=== PATIENT | male | born 1980 | race Caucasian/White ===

== ENCOUNTER 2016-09-28 12:00 | Emergency (ER) | payer OTHER, SELFPAY ==
--- NOTE | 2016-09-28 12:34 | ED.PDOC ---
History of Present Illness - General Chief Complaint: Respiratory Problem Stated Complaint: shortness of breath, nausea, dizzy Time Seen by Provider: 09/28/16 12:16 Source: patient, RN notes reviewed, Vital Signs reviewed Exam Limitations: no limitations - History of Present Illness Initial Comments: Marcia 36 y/o male with no chronic medical problem stated that at about 0730 h this morning he started having chest pressure while at work non radiating no diaphoresis also felt dizzy on bending over symptoms persisted he decided to come to er.Had same symptoms in the past stating whenever he goes to sleep lasting for about 30 minutes and goes away on its own.But he stated never happened on standing up. Denies exertional chest pain or dyspnea. Allergies/Adverse Reactions: Allergies NO KNOWN ALLERGY Allergy (Verified 09/28/16 12:21) Home Medications: Ambulatory Orders Oseltamivir Phosphate [Tamiflu] 75 mg PO BID #10 cap 09/28/16 Review of Systems - Review of Systems Constitutional: States: no symptoms reported EENTM: States: no symptoms reported Respiratory: States: see HPI Cardiology: States: see HPI Gastrointestinal/Abdominal: States: no symptoms reported Genitourinary: States: no symptoms reported Musculoskeletal: States: no symptoms reported Skin: States: no symptoms reported Neurological: States: no symptoms reported Endocrine: States: no symptoms reported Hematologic/Lymphatic: States: no symptoms reported Past Medical History (General) - Patient Medical History Hx Seizures: No Hx Stroke: No Hx Asthma: No Hx of COPD: No Hx Cardiac Disorders: No Hx Congestive Heart Failure: No Hx Pacemaker: No Hx Hypertension: No Hx Diabetes: No Hx MRSA: No Surgical History: other - knee(r),ORIF LEFT LEG - Vaccination History Hx Tetanus, Diphtheria Vaccination: Yes Hx Influenza Vaccination: No Hx Pneumococcal Vaccination: No - Social History Hx Tobacco Use: No Hx Chewing Tobacco Use: No Hx Alcohol Use: No Hx Substance Use: No Hx Substance Use Treatment: No Hx Depression: No Hx Physical Abuse: No Hx Emotional Abuse: No - Activities of Daily Living Patient Lives Alone: No - family Hospice Agency (if applicable):: None - Female History Patient is a Female of Child Bearing Age (10 -59 yrs old): No Patient : No Family Medical History - Family History Mother Family History: Unknown Living Status: Unknown Physical Exam - Physical Exam General Appearance: Alert, No apparent distress Ears, Nose, Throat: hearing grossly normal, normal ENT inspection, normal pharynx Neck: non-tender, full range of motion, supple Respiratory: chest non-tender, lungs clear, normal breath sounds, no respiratory distress Cardiovascular/Chest: normal peripheral pulses, regular rate, rhythm, no edema, no gallop, no JVD, no murmur Peripheral Pulses: radial,right: 2+, radial,left: 2+ Gastrointestinal/Abdominal: normal bowel sounds, non tender, soft, no organomegaly Back Exam: normal inspection, no CVA tenderness, no vertebral tenderness Extremity: normal range of motion, non-tender, normal inspection, no pedal edema Neurologic: no motor/sensory deficits, alert, normal mood/affect, oriented x 3 Skin Exam: normal color, warm/dry Progress - Progress Progress: 09/28/16 16:15 Repeat troponin-negative - Results/Orders Results/Orders: 09/28/16 12:45 EKG STAT Laboratory Results WBC 4.7 K/mm3 (4.8-10.8) L 09/28/16 12:50 RBC 5.02 M/mm3 (4.70-6.10) 09/28/16 12:50 Hgb 14.4 gm/dL (14.0-18.0) 09/28/16 12:50 Hct 42.2 % (42.0-52.0) 09/28/16 12:50 MCV 84.2 fl (80.0-94.0) 09/28/16 12:50 MCH 28.8 pg (27.0-31.0) 09/28/16 12:50 MCHC 34.2 g/dL (33.0-37.0) 09/28/16 12:50 RDW 12.8 % (11.5-14.5) 09/28/16 12:50 Plt Count 171 K/mm3 (130-400) 09/28/16 12:50 MPV 7.2 fl (7.40-10.4) L 09/28/16 12:50 Absolute Neuts (auto) 3.20 K/uL (1.8-6.8) 09/28/16 12:50 Absolute Lymphs (auto) 0.70 K/uL (1.0-3.4) L 09/28/16 12:50 Absolute Monos (auto) 0.70 K/uL (0.2-0.8) 09/28/16 12:50 Absolute Eos (auto) 0.10 K/uL (0.0-0.4) 09/28/16 12:50 Absolute Basos (auto) 0.00 K/uL (0.0-0.1) 09/28/16 12:50 Neutrophils % 67.8 % (42.0-78.0) 09/28/16 12:50 Lymphocytes % 14.7 % (20.0-50.0) L 09/28/16 12:50 Monocytes % 14.9 % (2.0-9.0) H 09/28/16 12:50 Eosinophils % 2.1 % (1.0-5.0) 09/28/16 12:50 Basophils % 0.5 % (0.0-2.0) 09/28/16 12:50 D-Dimer, Quantitative < 200 ng/mL (0-230) 09/28/16 12:50 Sodium 136 mmol/L (135-145) 09/28/16 12:50 Potassium 3.7 mmol/L (3.6-5.0) 09/28/16 12:50 Chloride 101 mmol/L (101-111) 09/28/16 12:50 Carbon Dioxide 27 mmol/L (21-31) 09/28/16 12:50 Anion Gap 11.7 (12-18) L 09/28/16 12:50 BUN 13 mg/dL (7-18) 09/28/16 12:50 Creatinine 1.05 mg/dL (0.6-1.3) 09/28/16 12:50 BUN/Creatinine Ratio 12.4 (10-20) 09/28/16 12:50 Random Glucose 99 mg/dL (70-105) 09/28/16 12:50 Serum Osmolality 272.1 mOsm/L (275-295) L 09/28/16 12:50 Calcium 9.4 mg/dL (8.4-10.2) 09/28/16 12:50 Total Bilirubin 0.5 mg/dL (0.2-1.0) 09/28/16 12:50 AST 29 IU/L (10-42) 09/28/16 12:50 ALT 38 IU/L (10-60) 09/28/16 12:50 Alkaline Phosphatase 79 IU/L (42-121) 09/28/16 12:50 Creatine Kinase 302 IU/L (38-174) H* 09/28/16 12:50 CK-MB (CK-2) 1.0 ng/mL (0.0-4.4) 09/28/16 12:50 CK-MB (CK-2) % 0.33 % (0.0-3.5) 09/28/16 12:50 Troponin I < 0.02 ng/mL (0.01-0.05) 09/28/16 12:50 B-Natriuretic Peptide < 5.0 pg/ml (0-100) 09/28/16 12:50 Serum Total Protein 7.5 gm/dL (6.4-8.2) 09/28/16 12:50 Albumin 4.6 g/dl (3.2-5.5) 09/28/16 12:50 Globulin 2.9 gm/dL (2.3-3.5) 09/28/16 12:50 Albumin/Globulin Ratio 1.6 (1.1-1.9) 09/28/16 12:50 09/28/16 12:45 EKG STAT Laboratory Results WBC 4.7 K/mm3 (4.8-10.8) L 09/28/16 12:50 RBC 5.02 M/mm3 (4.70-6.10) 09/28/16 12:50 Hgb 14.4 gm/dL (14.0-18.0) 09/28/16 12:50 Hct 42.2 % (42.0-52.0) 09/28/16 12:50 MCV 84.2 fl (80.0-94.0) 09/28/16 12:50 MCH 28.8 pg (27.0-31.0) 09/28/16 12:50 MCHC 34.2 g/dL (33.0-37.0) 09/28/16 12:50 RDW 12.8 % (11.5-14.5) 09/28/16 12:50 Plt Count 171 K/mm3 (130-400) 09/28/16 12:50 MPV 7.2 fl (7.40-10.4) L 09/28/16 12:50 Absolute Neuts (auto) 3.20 K/uL (1.8-6.8) 09/28/16 12:50 Absolute Lymphs (auto) 0.70 K/uL (1.0-3.4) L 09/28/16 12:50 Absolute Monos (auto) 0.70 K/uL (0.2-0.8) 09/28/16 12:50 Absolute Eos (auto) 0.10 K/uL (0.0-0.4) 09/28/16 12:50 Absolute Basos (auto) 0.00 K/uL (0.0-0.1) 09/28/16 12:50 Neutrophils % 67.8 % (42.0-78.0) 09/28/16 12:50 Lymphocytes % 14.7 % (20.0-50.0) L 09/28/16 12:50 Monocytes % 14.9 % (2.0-9.0) H 09/28/16 12:50 Eosinophils % 2.1 % (1.0-5.0) 09/28/16 12:50 Basophils % 0.5 % (0.0-2.0) 09/28/16 12:50 D-Dimer, Quantitative < 200 ng/mL (0-230) 09/28/16 12:50 Sodium 136 mmol/L (135-145) 09/28/16 12:50 Potassium 3.7 mmol/L (3.6-5.0) 09/28/16 12:50 Chloride 101 mmol/L (101-111) 09/28/16 12:50 Carbon Dioxide 27 mmol/L (21-31) 09/28/16 12:50 Anion Gap 11.7 (12-18) L 09/28/16 12:50 BUN 13 mg/dL (7-18) 09/28/16 12:50 Creatinine 1.05 mg/dL (0.6-1.3) 09/28/16 12:50 BUN/Creatinine Ratio 12.4 (10-20) 09/28/16 12:50 Random Glucose 99 mg/dL (70-105) 09/28/16 12:50 Serum Osmolality 272.1 mOsm/L (275-295) L 09/28/16 12:50 Calcium 9.4 mg/dL (8.4-10.2) 09/28/16 12:50 Total Bilirubin 0.5 mg/dL (0.2-1.0) 09/28/16 12:50 AST 29 IU/L (10-42) 09/28/16 12:50 ALT 38 IU/L (10-60) 09/28/16 12:50 Alkaline Phosphatase 79 IU/L (42-121) 09/28/16 12:50 Creatine Kinase 302 IU/L (38-174) H* 09/28/16 12:50 CK-MB (CK-2) 1.0 ng/mL (0.0-4.4) 09/28/16 12:50 CK-MB (CK-2) % 0.33 % (0.0-3.5) 09/28/16 12:50 Troponin I < 0.02 ng/mL (0.01-0.05) 09/28/16 15:10 B-Natriuretic Peptide < 5.0 pg/ml (0-100) 09/28/16 12:50 Serum Total Protein 7.5 gm/dL (6.4-8.2) 09/28/16 12:50 Albumin 4.6 g/dl (3.2-5.5) 09/28/16 12:50 Globulin 2.9 gm/dL (2.3-3.5) 09/28/16 12:50 Albumin/Globulin Ratio 1.6 (1.1-1.9) 09/28/16 12:50 Departure - Departure Clinical Impression: Chest pain of uncertain etiology, Fever in adult Rhabdomyolysis Qualifiers: Rhabdomyolysis type: non-traumatic Qualifier Code: (M62.82) Rhabdomyolysis Time of Disposition: 16:09 Disposition: Discharge to Home or Self Care Condition: Good Departure Forms: ED Discharge - Pt. Copy, Patient Portal Self Enrollment Instructions: DI for Atypical Chest Pain, DI for Rhabdomyolysis, DI for Fever ( Symptom) -- Adult Prescriptions: Oseltamivir Phosphate [Tamiflu] 75 mg PO BID #10 cap Home Medications: Ambulatory Orders Oseltamivir Phosphate [Tamiflu] 75 mg PO BID #10 cap 09/28/16 Additional Instructions: RETURN TO EMERGENCY ROOM NEEDED;INCREASE ORAL FLUID INTAKE;EXCUSE FROM WORK 09/28-;RETURN TO WORK WITHOUT RESTRICTIONS 09/30/2016
--- NOTE | 2016-09-28 13:14 | RAD ---
EXAM DESCRIPTION: XR CHEST 1 VIEW CLINICAL HISTORY: pain noncardiac chest pain and shortness of breath. COMPARISON: 24 February 2016. TECHNIQUE: AP portable chest FINDINGS: The lungs are clear. There is no infiltrate or effusion. The heart is normal size. IMPRESSION: Normal portable chest Electronically signed by: Tyson Chen MD 09/28/2016 13:13
[2016-09-28] MEDS ORDERED: LACTATED RINGERS 1,000 ML IVS ONE (14:22)
[2016-09-28 14:54] VITALS: TEMP 101.3
[2016-09-28] MEDS ORDERED: ACETAMINOPHEN 500 MG TAB PO ONE (14:59)
[2016-09-28] MEDS ORDERED: OSELTAMIVIR 75 MG CAP PO ONE (15:00)
[2016-09-28 16:54] VITALS: BP 97/53; O2SAT 97
== END 2016-09-28 16:45 | disposition home or self-care (01) ==
LOC: ER 12:00
DX: M62.82 Rhabdomyolysis (principal); R50.9 Fever, unspecified; R07.9 Chest pain, unspecified